=== PATIENT | male | born 1955 | race Asian ===

== ENCOUNTER 2024-02-27 07:20 | Emergency (ER) | payer BC, MEDICAID ==
[~2024-02-27] VITALS: Ht 170.2 cm; Wt 66.0 kg
[2024-02-27 08:21] VITALS: TEMP 98.2
[2024-02-27] MEDS: HYDROcodone-ACET 10/325MG TAB PO ONE (08:23)
[2024-02-27 10:46] VITALS: BP 119/72
[2024-02-27 10:47] VITALS: PULSE 69; RESP 16; O2SAT 95
== END 2024-02-27 12:01 | disposition left against medical advice (07) ==
LOC: EDBD 07:20 → ER 07:25
DX: M50.30 Other cervical disc degeneration, unspecified cervical region (principal); R07.89 Other chest pain
CPT/HCPCS: 71045; 72040; 93005